=== PATIENT | female | born 1975 | race African-American/Black ===

== ENCOUNTER 2016-09-23 21:40 | Emergency (ER) | payer MEDICAID ==
[~2016-09-23] VITALS: Ht 165.1 cm; Wt 95.5 kg
[~2016-09-23 21:40] MED LIST: LURA80 PO; QUET400T PO
[2016-09-23] MEDS ORDERED: SERT100T12 PO (21:45)
[2016-09-23] MEDS ORDERED: VIST50 PO (21:45)
[2016-09-23] MEDS ORDERED: GABA-533 PO (21:45)
[2016-09-23] MEDS ORDERED: LITH300C3 PO (21:45)
[2016-09-23 22:04] LABS: BASOPHILS % (AUTO) 0.3 % (0.0-2.0); EOSINOPHILS % (AUTO) 1.6 % (1.0-6.0); HEMATOCRIT 36.9 % (36-46); HEMOGLOBIN 12.2 g/dL (12.0-16.0); LYMPHOCYTES # (AUTO) 2.8 K/uL (1.0-4.8); LYMPHOCYTES % (AUTO) 37.7 % (22.0-44.0); MEAN CORPUSCULAR HEMOGLOBIN 25.9 pg (26.0-34.0); MEAN CORPUSCULAR VOLUME 78 fL (80-100); MONOCYTES # (AUTO) 0.5 K/uL (0.1-1.0); MONOCYTES % (AUTO) 6.8 % (2.0-9.0); NEUTROPHILS % (AUTO) 53.6 % (40.0-70.0); PLATELET COUNT (AUTO) 306 K/uL (150-450); RED BLOOD CELL COUNT(AUTO) 4.71 MIL/uL (4.00-5.20); RED CELL DISTRIBUTION WIDTH 14.7 % (11.5-14.5); WHITE BLOOD COUNT (AUTO) 7.5 K/uL (4.5-11.0)
[2016-09-23 22:13] LABS: ANION GAP 11 mmol/L (8-16); CARBON DIOXIDE 25 mmol/L (22-29); CHLORIDE 107 mmol/L (98-107); CREATININE 1.18 mg/dL (0.60-1.30); GLOMERULAR FILTR. RATE CALC > 60 mL/min (>60); POTASSIUM 3.7 mmol/L (3.5-5.1); SODIUM SERUM 143 mmol/L (136-145); UREA NITROGEN, BLOOD 8 mg/dL (7-18)
[2016-09-23 22:19] LABS: ALANINE AMINOTRANSFERASE 39 U/L (12-78); ALBUMIN 4.2 g/dL (3.4-5.0); ASPARTATE AMINOTRANSFERASE 25 U/L (15-37); BILIRUBIN,TOTAL 0.4 mg/dL (0.1-1.0); TOTAL PROTEIN, SERUM 8.2 g/dL (6.4-8.2)
[2016-09-23 22:25] LABS: LITHIUM 0.49 mmol/L (0.60-1.20)
[2016-09-23 22:42] LABS: APPEARANCE,URINE TURBID (CLEAR); GLUCOSE, URINE (UA) NEGATIVE (NEGATIVE); KETONES,URINE TRACE mg/dL (NEGATIVE); LEUKOCYTE ESTERASE ,URINE LARGE (NEGATIVE); OCCULT BLOOD,URINE MODERATE (NEGATIVE); PROTEIN,URINE POS 1+ (NEGATIVE)
[2016-09-23 22:43] LABS: ADD UA MICROSCOPIC YES
[2016-09-23 22:47] LABS: SQUAMOUS EPITHELIAL CELL,UR Moderate /LPF (None Seen); WBC,URINE 51-100 /HPF (0-5)
[2016-09-24 02:35] VITALS: BP 140/98
== END 2016-09-24 02:39 | disposition home or self-care (01) ==
LOC: EMS 21:41
DX: N93.8 Other specified abnormal uterine and vaginal bleeding (principal); F15.10 Other stimulant abuse, uncomplicated; F11.90 Opioid use, unspecified, uncomplicated; F17.210 Nicotine dependence, cigarettes, uncomplicated
CPT/HCPCS: 36415; 76856; 80053; 80178; 80307; 81001; 84703; 85025; 87086; 99285; 99406; G0480

== ENCOUNTER 2017-05-17 03:55 | Emergency (ER) | payer MEDICAID ==
[~2017-05-17] VITALS: Ht 162.6 cm; Wt 92.7 kg
[~2017-05-17 03:55] MED LIST changes: +GABA-533 PO; +LITH300C3 PO; -LURA80 PO; +SERT100T12 PO; +VIST50 PO
[2017-05-17] MEDS ORDERED: METOCLOPRAMIDE HCL 5 MG/ML 2 ML VIAL IM ONE (04:15)
[2017-05-17] MEDS ORDERED: DiphenhydrAMINE HCL 50 MG/ML VIAL IM ONE (04:15)
[2017-05-17] MEDS ORDERED: ACETAMINOPHEN 325 MG TABLET PO ONE (04:15)
[2017-05-17 04:36] VITALS: BP 152/79
== END 2017-05-17 05:01 | disposition home or self-care (01) ==
LOC: EMS 03:56
DX: R51 Headache (principal); F17.210 Nicotine dependence, cigarettes, uncomplicated; F11.90 Opioid use, unspecified, uncomplicated; F19.90 Other psychoactive substance use, unspecified, uncomplicated
CPT/HCPCS: 96372; 99284; J1200; J2765